=== PATIENT | male | born 1945 | race Caucasian/White ===

== ENCOUNTER → 2019-04-24 | Outpatient (CLI) | payer MEDICARE ==
[2019-04-24 15:20] LABS: Blood Urea Nitrogen 17 mg/dL (9-20)
--- NOTE | 2019-04-24 15:59 | CT ---
EXAMINATION TYPE: CT brain w con DATE OF EXAM: 04/24/2019 COMPARISON: NONE HISTORY: Other amnesia. CT DLP: 1261 mGycm Automated Exposure Control for Dose Reduction was Utilized. TECHNIQUE: CT scan of the head is performed with IV contrast,CT scan of the head is performed without and with with IV Contrast, patient injected with 100 mL of Isovue M300. FINDINGS: No midline shift is seen. No suspicious extra-axial fluid collection. The ventricles and levine lci are within normal limits in size. There are few patchy areas of hypoattenuation in the frontal co aston radiata. Postcontrast images show no suspicious enhancing intraparenchymal mass. The globes are intact and the visualized sinuses are clear. Calcifications along the right frontal region appears de rmal on image 9 but subcutaneous on image 10. Correlation with physical exam is recommended although this finding is overwhelmingly benign. IMPRESSION: 1. No evidence of intracranial enhancing mass or abnormal intracranial enhancement. No midline shift. 2. 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
== END ==
LOC: RADCTMAIN 14:29
PROVIDERS: ATTEND Family Medicine
DX: R90.89 Other abnormal findings on diagnostic imaging of central nervous system (principal); R41.3 Other amnesia
CPT/HCPCS: 82565; 84520; 70460; 36415; Q9967

== ENCOUNTER 2021-07-15 06:26 | Day surgery (SDC) | payer MEDICARE ==
[2021-07-13 11:00] VITALS: BMI 35.4
[~2021-07-15 06:26] MED LIST: LACTATED RINGERS 1,000 ML IV SCH; LIDOCAINE 1% (10MG/ML) FOR IV START INTRADERMA PRN
[2021-07-15] MEDS ORDERED: LACTATED RINGERS 1,000 ML IV ONE (06:46)
[2021-07-15 07:00] VITALS: RESP 16; TEMP 97.4
[2021-07-15] MEDS ORDERED: LIDOCAINE 1% INJ 10MG/ML (20 ML MDV) ONE (07:28)
[2021-07-15] MEDS ORDERED: PROPOFOL 10 MG/ML 20 ML VIAL IV ONE (07:28)
--- NOTE | 2021-07-15 07:42 | P.PCN ---
Date of Procedure: 07/15/21 Procedure(s) Performed: BRIEF HISTORY: Patient is a 76-year-old, pleasant, white male scheduled for an upper endoscopy as a part of evaluation of intermittent dysphagia to solids. He had 2 episodes of severe dysphagia for the last one was a month ago when he went to the emergency room and symptoms spontaneously resolved.. PROCEDURE PERFORMED: Esophagogastroduodenoscopy with biopsy. PREOPERATIVE DIAGNOSIS: Intermittent dysphagia to solids IV sedation per anesthesia. PROCEDURE: After informed consent was obtained, the patient was brought into the endoscopy unit. IV sedation was administered by Anesthesia under continuous monitoring. Initially the Olympus GIF-140 video endoscope was inserted into the mouth. Esophagus intubated without any difficulty. It was gradually advanced into the stomach and duodenum and carefully examined. The bulb and the second part of the duodenum appeared normal. The scope at this time was withdrawn to the stomach, adequately insufflated with air, and upon careful examination, mucosa of the antrum had mild gastritis and biopsies were done from this area. The, body, cardia and the fundus appeared normal. The scope was then withdrawn into the esophagus. The GE junction was located at 40 cm from the incisors. Small hiatal hernia noted. There was one superficial ulceration and several erosions in the distal esophagus with thickened esophageal folds and biopsies were done from this area. This is consistent with LA grade C reflux esophagitis. Rest of esophagus appeared normal and the patient tolerated the procedure well. IMPRESSION: 1. One superficial ulceration with erosions in the distal esophagus consistent with LA grade C reflux esophagitis. 2. Small hiatal hernia 3. Mild antral gastritis. RECOMMENDATIONS: The findings of this examination were discussed with the patient as well as his family. He was advised to follow with the biopsies is. He'll be started on Prilosec 20 mg daily and was briefly educated about antireflux measures. Most likely his symptoms are related to severe reflux esophagitis..
[2021-07-15 08:12] VITALS: BP 152/89; PULSE 62
== END 2021-07-15 08:31 | disposition home or self-care (01) ==
LOC: ORWHC2ENDO 06:26
PROVIDERS: ATTEND Internal Medicine Gastroenterology
DX: K44.9 Diaphragmatic hernia without obstruction or gangrene (principal); K29.70 Gastritis, unspecified, without bleeding; K21.00 Gastro-esophageal reflux disease with esophagitis, without bleeding
CPT/HCPCS: 43239; 88305; 88312; 88342; J2001; J2704